=== PATIENT | female | born 1990 | race African-American/Black ===

== ENCOUNTER 2016-09-29 17:23 | Emergency (ER) | payer SELFPAY ==
[~2016-09-29] VITALS: Ht 154.9 cm; Wt 94.0 kg
[~2016-09-29 17:23] MED LIST: AMOX250S3 PO; Z.0.NO CURRENT MEDS
[2016-09-29 17:32] VITALS: BP 128/86; PULSE 84; RESP 16; TEMP 99.3; O2SAT 98
== END 2016-09-29 18:41 | disposition left against medical advice (07) ==
LOC: PHED 17:23
DX: J00 Acute nasopharyngitis [common cold] (principal); Z53.21 Procedure and treatment not carried out due to patient leaving prior to being seen by health care provider
CPT/HCPCS: 99281